=== PATIENT | female | born 1975 | race Caucasian/White ===

== ENCOUNTER 2018-04-11 13:32 | Emergency (ER) | payer OTHER ==
[~2018-04-11] VITALS: Ht 12.7 cm; Wt 52.8 kg
[~2018-04-11 13:32] MED LIST: ATOR20TA PO; METH500T14 PO; SYN.05 PO
[2018-04-11 13:38] VITALS: BP 143/42
[2018-04-11] MEDS ORDERED: IBUPROFEN 800 MG TAB PO ONE (13:50)
[2018-04-11] MEDS: ACETAMINOPHEN EXTRA STRENGTH 500 MG TAB PO ONE (14:04)
[2018-04-11 14:50] VITALS: BP 124/60
== END 2018-04-11 14:50 | disposition home or self-care (01) ==
LOC: MED 13:32
DX: R07.89 Other chest pain (principal); E03.9 Hypothyroidism, unspecified; Z79.899 Other long term (current) drug therapy
CPT/HCPCS: 71045; 99283; Q0092

== ENCOUNTER 2018-04-28 22:12 | Emergency (ER) | payer OTHER ==
[~2018-04-28] VITALS: Ht 152.4 cm; Wt 51.7 kg
[2018-04-28 22:29] VITALS: BP 154/75
--- NOTE | 2018-04-28 22:35 | NUR ---
PT TAKEN TO BED 5
--- NOTE | 2018-04-28 22:40 | NUR ---
PATIENT IS A 42 Y/O FEMALE WHO PRESENTS TO THE ED C/O CHEST PAIN. PT STATES THAT IT STARTED THIS MORNING. PT REPORTS 7/10 ACHING L SIDE CHEST AND BREAST PAIN THAT DOES NOT RADIATE. PT DENIES COUGH, SOB, N/V/D. PT AAOX4, RR EVEN/UNLABORED. PT REPOSITIONED FOR COMFORT, BED IN LOWEST POSITION. ER MD DR. SELBY NOTIFIED. WILL CONTINUE TO MONITOR.
--- NOTE | 2018-04-28 22:45 | NUR ---
X-Ray at bedside.
--- NOTE | 2018-04-28 22:57 | NUR ---
Dr. Hercules evaluating patient at bedside.
[2018-04-28] MEDS ORDERED: KETOROLAC 60 MG/2 ML VIAL IM ONE (23:10)
[2018-04-28 23:45] VITALS: BP 148/82
--- NOTE | 2018-04-28 23:45 | NUR ---
Patient discharged with v/s stable. Written and verbal after care instructions given and explained. Patient verbalized understanding. Ambulatory with steady gait. All questions addressed prior to discharge. Advised to follow up with PMD.
== END 2018-04-28 23:45 | disposition home or self-care (01) ==
LOC: MED 22:12
DX: R07.89 Other chest pain (principal); E03.9 Hypothyroidism, unspecified; Z79.899 Other long term (current) drug therapy
CPT/HCPCS: 71045; 81025; 93005; 96372; 99284; J1885; Q0092